=== PATIENT | female | born 1955 | race Two or more races ===

== ENCOUNTER 2017-05-20 08:30 | Day surgery (SDC) | payer OTHER ==
[2017-05-19 09:27] VITALS: BMI 29.6
--- NOTE | 2017-05-19 18:04 | PREOP ---
DATE OF ADMISSION: 05/20/2017 ADMISSION DIAGNOSIS: Neck mass. HISTORY OF PRESENT ILLNESS: This 61-year-old female has noticed swelling of her neck which is persistent. It is in the right anterior neck and has not grown. On examination it is consistent with a lipoma. She is now admitted for excision of this right anterior neck mass. PAST MEDICAL HISTORY: Primary medical doctor is Dr. Pantera Veloz. Medical conditions: The patient has hypothyroidism and high cholesterol. PRESENT MEDICATIONS: Include fluticasone nasal spray, levothyroxine, pravastatin and ranitidine. ALLERGIES: SHE IS ALLERGIC TO PENICILLIN, WHICH CAUSES SWELLING. SOCIAL HISTORY: She does not smoke. SURGICAL HISTORY: None except for colonoscopy. She has not had general anesthesia. She has had IV sedation in the office for colonoscopy and also had one for an . BLEEDING HISTORY: Negative. She is not on Coumadin or aspirin. FAMILY HISTORY: Negative for bleeding or anesthesia problems. EXAM: General: The patient is a well-developed female in no acute distress. HEENT: Head is normal. Eyes are clear. Ears are unremarkable. Neck: Significant for a 2.5 cm round, soft, mobile mass in the right anterior neck, level 3. There is no adenopathy or other mass. IMPRESSION: Right neck mass consistent with lipoma. PLAN: Excision of right neck mass under anesthesia. INFORMED CONSENT: The patient understands the indications, alternatives, the nature of the risks and benefits of proposed surgery, potential complications including, but not limited to, anesthesia, bleeding, infection, scar, numbness and recurrence were discussed in detail. She understands and accepts these risks and wishes to proceed with surgery. Questions were answered fully. GUILLE KINNEY M.D. [id number]
[2017-05-20 09:07] VITALS: TEMP 97.5
[2017-05-20] MEDS ORDERED: PROPOFOL 20 ML ONE (10:00)
[2017-05-20] MEDS ORDERED: MIDAZOLAM HCL 2 MG/2 ML SINGLE DOSE VIAL ONE ×2 (10:00→10:20)
--- NOTE | 2017-05-20 10:10 | HP ---
History & Physical Update - History History: No Change - Physical Physical: No Change - Assessment Assessment: No Change - Plan Plan: No Change
[2017-05-20] MEDS ORDERED: LIDOCAINE 1%/EPI 1:100000 (20 ML MULTI DOSE VIAL) ONE (10:19)
[2017-05-20] MEDS ORDERED: LIDOCAINE 1%/EPI 1:100000 (20 ML MULTI DOSE VIAL) IJ ONE ×2 (10:24→11:00)
[2017-05-20] MEDS ORDERED: ONDANSETRON 4 MG/2 ML VIAL IVPUSH PRN (10:42)
[2017-05-20] MEDS ORDERED: oxyCODONE HCL 5 MG TABLET PO PRN (10:42)
[2017-05-20] MEDS ORDERED: LACTATED RINGERS SOLUTION 1,000 ML IV SCH (10:45)
[2017-05-20] MEDS ORDERED: ACETAMINOPHEN 325 MG TABLET (FP) PO PRN (11:27)
--- NOTE | 2017-05-20 11:27 | OP ---
Operative Note - Note: Operative Date: 05/20/17 (05149) Pre-Operative Diagnosis: lipoma right anterior neck Operation: excision of lipoma, deep, right anterior neck Findings: lipoma right anterior neck, level 3 deep to platysma muscle Implants: none Post-Operative Diagnosis: Same as Pre-op Surgeon: Rolf Flynn Anesthesiologist/[employer] MANAGER: Elle Peck Anesthesia: General, MAC Specimens Removed: lipoma right neck Estimated Blood Loss (mls): 3 Drains & Tubes with Location: none Blood Volume Replaced (mls): 0 Fluid Volume Replaced (mls): 400 Operative Report Dictated: Yes
--- NOTE | 2017-05-20 12:04 | OP ---
DATE OF OPERATION: 05/20/2017 PREOPERATIVE DIAGNOSIS: Right neck lipoma. POSTOPERATIVE DIAGNOSIS: Right neck lipoma. PROCEDURE: Excision of deep right neck lipoma. SURGEON: Guille Flynn MD ANESTHESIOLOGIST: Elle Peck CRNA ANESTHESIA: MAC. INDICATIONS: This 61-year-old female has had swelling of the right neck for several years. It has not grown. It is painless. Examination demonstrates a 2-cm soft, mobile lesion of the right anterior neck, level 3, clinically consistent with lipoma. She is now brought to surgery for treatment. FINDINGS: A 2-cm lipoma of deep right neck, deep to platysma muscle. DESCRIPTION OF PROCEDURE: Patient was brought to the operating room and placed on the operating table in supine position. Monitored anesthesia care was instituted. The right anterior neck was prepped and draped in the usual fashion. Lidocaine 1% with epinephrine 1:100,000 was infiltrated into the area of the lipoma. It had been marked preoperatively and lay beneath a naturally-occurring skin fold. An incision was created within the naturally-occurring skin fold and carried down through skin and subcutaneous tissue. Hemostasis was achieved with electrocautery. Dissection proceeded. The platysma muscle was identified, and the mass was palpable beneath this. Platysma muscle was then split vertically between the fibers. The lipoma was exposed. Soft tissue was retracted, and the lipoma was carefully dissected from its surrounding tissue using primarily blunt dissection. There were small vessels at the superior and inferior attachments, which were tied off with 4-0 silk ties. The lesion was then removed entirely and sent to Pathology for routine studies. The surgical bed was inspected. The strap muscles and sternocleidomastoid muscles were seen beneath the level of the lipoma. There was an external jugular vein which was posterior to the incision. Hemostasis was excellent. The wound was closed in layers, closing the platysma and subcutaneous layers with absorbable sutures. Then, 4-0 Biosyn was used for a running subcuticular suture. The skin was then cleaned, dried, prepped with benzoin, and overlapping Steri-Strips were applied. A dry sterile pressure dressing was then placed. Patient tolerated the procedure well. She was then transferred to [facility] in stable condition. Estimated blood loss was 3 mL. She received crystalloid during the procedure. There was no blood replacement. The right neck lipoma was sent to Pathology for routine studies. There were no complications. GUILLE FLYNN M.D. [id number]
[2017-05-20] MEDS ORDERED: ACETAMINOPHEN 325 MG TABLET (FP) ONE (12:38)
[2017-05-20 13:13] VITALS: BP 147/75; PULSE 71
--- NOTE | 2017-05-22 14:36 | PATH ---
Surgical Pathology Report Patient Name: JAKE GARCIA [facility]. Rec. #: [id number] /Age/Gender: 1955 (Age: 61) / F Account: [id number] Location: [facility] SUR[facility] Taken: 05/20/2017 Received: 05/20/2017 Reported: 05/22/2017 Physicians: Rolf Flynn M.D. Specimen(s) Received LIPOMA RIGHT NECK Clinical History Mass right neck Final Diagnosis NECK, RIGHT, LIPOMA, EXCISION: MATURE FIBROADIPOSE TISSUE CONSISTENT WITH LIPOMA AND SCANT SKELETAL MUSCLE. Electronically Signed Anna Marie Chopra M.D. Gross Description Received in formalin labeled "lipoma from right neck," is a 2.2 x 1.6 x 0.3 cm aggregate of yellow, lobulated adipose tissue. The specimen is entirely submitted in one cassette. /05/20/201705/20/2017
== END 2017-05-20 13:16 | disposition home or self-care (01) ==
LOC: JASU-SURG 08:30
PROVIDERS: ATTEND Otolaryngology
PROC: 0JB40ZZ Excision of Right Neck Subcutaneous Tissue and Fascia, Open Approach (ICD-10-PCS; principal; 2017-05-20 10:00)
DX: D17.0 Benign lipomatous neoplasm of skin and subcutaneous tissue of head, face and neck (principal)
CPT/HCPCS: 88304-TC